=== PATIENT | male | born 1975 | race Caucasian/White ===

== ENCOUNTER → 2016-07-20 | Outpatient (CLI) | payer OTHER | LOC: COL.RAD 07:28 | DX: S36.09XD Other injury of spleen, subsequent encounter (principal); X58.XXXD Exposure to other specified factors, subsequent encounter ==

== ENCOUNTER 2019-04-30 10:33 | Day surgery (SDC) | payer OTHER ==
[~2019-04-30] VITALS: Ht 182.9 cm; Wt 81.4 kg
[2019-04-30] VITALS (7 sets, daily range): BP systolic 109–135; BP diastolic 54–74; PULSE 53–70; TEMP 97.1–97.8
[2019-04-30] MEDS ORDERED: NORCO 325 MG-51 TAB PO (14:31)
[2019-04-30] MEDS ORDERED: MOTRIN 600600 MG/TAB PO (14:31)
[2019-04-30] MEDS ORDERED: COLACE 100100 MG/CAP PO (14:32)
--- NOTE | 2019-04-30 15:00 | NUR ---
Reports received from Estephania Duggan PAD HAND. Pt brought via cart to bay 6. Pt easily arousable and responds appropriately, though drowsy. VSS-see flowsheet. Rodriguez set intact to x3 abdominal surgical sites, no oozing noted. Pt denies needs or complaints. Lights dimmed, pt requested to rest at this time. Side rails up with call light in reach. Audible vitals monitor in place. Pts girlfriend brought in to room to be present.
--- NOTE | 2019-04-30 15:45 | NUR ---
PATIENT RESTING QUIETLY
--- NOTE | 2019-04-30 16:00 | NUR ---
ATE 100% AND TOLERATED WELL. PATIENT JOKING ABOUT EATING A WANTING A HAMBURGER. C/O PAIN 08/17 DENIES NAUSEA
--- NOTE | 2019-04-30 16:10 | NUR ---
AMBULATED TO BATHROOM WITH ASSIST. VOIDED AND AMBULATED BACK TO BED, C/O FEELING LIGHT HEADED. LAYED BACK DOWN AND NEW WARM BLANKET APPLIED. AT BEDSIDE. CONTINUES TO C/O PAIN 08/17
--- NOTE | 2019-04-30 16:27 | NUR ---
RECEIVED 2ND COLA AND MUFFIN PER PATIENT REQUEST. STATED HE IS FEELING BETTER.
--- NOTE | 2019-04-30 16:30 | NUR ---
LAMB SET OVER INCISION SITES CLEAN DRY INTACT. CONTINUES TO C/O PAIN 08/17. ATE 100%
--- NOTE | 2019-04-30 16:40 | NUR ---
RECEIVED DISCHARGE INSTRUCTIONS AND VERBALIZED UNDERSTANDING
--- NOTE | 2019-04-30 17:04 | NUR ---
DISCHARGED PER WC BY NURSING STAFF TO PRIVATE CAR IN CARE OF GIRLFRIEND.
== END 2019-04-30 17:06 | disposition home or self-care (01) ==
LOC: SDCO 10:33
DX: K40.90 Unilateral inguinal hernia, without obstruction or gangrene, not specified as recurrent (principal); Z88.0 Allergy status to penicillin
CPT/HCPCS: C1781; J0690; J1100; J1885; J2405; J2704; J3010; J7120